=== PATIENT | female | born 2000 | race Two or more races ===

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

== ENCOUNTER 2018-06-24 13:36 | Emergency (ER) | payer OTHER ==
[2018-06-24 13:44] VITALS: BP 122/84
== END 2018-06-24 14:38 | disposition left against medical advice (07) ==
DX: Z53.21 Procedure and treatment not carried out due to patient leaving prior to being seen by health care provider (principal); R05 Cough

== ENCOUNTER 2018-06-25 03:36 | Emergency (ER) | payer OTHER ==
[2018-06-25] MEDS ORDERED: NS 1,000 ML IV ONE (04:02)
[2018-06-25] MEDS ORDERED: HALOPERIDOL LACT 5 MG/ML INJ IVP ONE (04:07)
--- NOTE | 2018-06-25 04:12 | EDPHY ---
H & P Stated Complaint: emesisx2 days Time Seen by Provider: 06/25/18 03:52 HPI/ROS: Chief Complaint: Nausea, vomiting HPI: 18-year-old female presenting with 2 days of nausea vomiting. She has had upper respiratory symptoms. No fevers or chills. No urinary urgency or frequency. She has similar episode in the past and was told that she has had some cyclic vomiting. She does use marijuana daily. Occasional alcohol, does not smoke. No fevers or chills. Last menstrual cycle was 3 weeks ago. She does have an implant on a padded [place] she states. Does not believe she is . She has not been able to keep any fluids down. ROS: 10 systems were reviewed and were negative except those elements noted in the HPI. PMH: Denies Social History: No smoking, occasional alcohol, daily marijuana Family History: non-contributory Physical Exam: Gen: Awake, Alert, No Distress HEENT: Nose: no rhinorrhea Eyes: PERRLA, EOMI Mouth: Moist mucosa Neck: Supple, no JVD Chest: nontender, lungs clear to auscultation Heart: S1, S2 normal, no murmur Abd: Soft, non-tender, no guarding Back: no CVA tenderness, no midline tenderness Ext: no edema, non-tender Skin: no rash Neuro: CN II-XII intact, Sensation grossly intact, Strength 5/5 in bilateral upper and lower extremities - Personal History LMP (Females 10-55): 15-21 Days Ago Current Tetanus/Diphtheria Vaccine: Yes Current Tetanus Diphtheria and Acellular Pertussis (TDAP): Yes - Medical/Surgical History Hx Asthma: No Hx Chronic Respiratory Disease: No Hx Diabetes: No Hx Cardiac Disease: No Hx Renal Disease: No Hx Cirrhosis: No Hx Alcoholism: No Hx HIV/AIDS: No Hx Splenectomy or Spleen Trauma: No Other PMH: denies - Social History Smoking Status: Never smoked Constitutional: Initial Vital Signs Temperature (C) 36.4 C 06/25/18 03:41 Heart Rate 71 06/25/18 03:41 Respiratory Rate 16 06/25/18 03:41 Blood Pressure 152/89 H 06/25/18 03:41 O2 Sat (%) 99 06/25/18 03:41 O2 Delivery Mode Room Air Allergies/Adverse Reactions: No Known Allergies Allergy (Verified 06/25/18 03:43) Home Medications: Medication Instructions Recorded Ondansetron Odt [Zofran Odt] 4 mg PO Q4PRN #6 tab 12/29/17 Medical Decision Making ED Course/Re-evaluation: Patient is improved after IV fluids and Haldol. She is tolerating p. O.. We have discussed at length the possibility that her symptoms could be secondary to her cannabis use. I have encouraged her to discontinue all cannabis use for at least the next 6-8 weeks. She will follow up with primary care. Return for any concerns. Abdomen is soft and benign. No evidence of acute intra abdominal infectious or surgical process. - Data Points Laboratory Results: Laboratory Results 06/25/18 03:55 06/25/18 03:55 06/25/18 06/25/18 06/25/18 03:55 03:55 03:55 WBC 13.52 10^3/uL H 10^3/uL (3.80-9.50) RBC 4.61 10^6/uL 10^6/uL (4.18-5.33) Hgb 13.9 g/dL g/dL (12.6-16.3) Hct 40.3 % % (38.0-47.0) MCV 87.4 fL fL (81.5-99.8) MCH 30.2 pg pg (27.9-34.1) MCHC 34.5 g/dL g/dL (32.4-36.7) RDW 12.4 % % (11.5-15.2) Plt Count 297 10^3/uL 10^3/uL (150-400) MPV 9.3 fL fL (8.7-11.7) Neut % (Auto) 60.1 % % (39.3-74.2) Lymph % (Auto) 31.6 % % (15.0-45.0) [place] % (Auto) 7.7 % % (4.5-13.0) Eos % (Auto) 0.2 % L % (0.6-7.6) Baso % (Auto) 0.2 % L % (0.3-1.7) Nucleat RBC Rel Count 0.0 % % (0.0-0.2) Absolute Neuts (auto) 8.12 10^3/uL H 10^3/uL (1.70-6.50) Absolute Lymphs (auto) 4.27 10^3/uL H 10^3/uL (1.00-3.00) Absolute Monos (auto) 1.04 10^3/uL H 10^3/uL (0.30-0.80) Absolute Eos (auto) 0.03 10^3/uL 10^3/uL (0.03-0.40) Absolute Basos (auto) 0.03 10^3/uL 10^3/uL (0.02-0.10) Absolute Nucleated RBC 0.00 10^3/uL 10^3/uL (0-0.01) Immature Gran % 0.2 % % (0.0-1.1) Immature Gran # 0.03 10^3/uL 10^3/uL (0.00-0.10) Sodium 139 mEq/L mEq/L (135-145) Potassium 3.4 mEq/L mEq/L (3.3-5.0) Chloride 107 mEq/L mEq/L (97-110) Carbon Dioxide 20 mEq/l L mEq/l (22-31) Anion Gap 12 mEq/L mEq/L (6-14) BUN 8 mg/dL mg/dL (7-23) Creatinine 0.5 mg/dL L mg/dL (0.6-1.0) Estimated GFR > 60 Glucose 102 mg/dL H mg/dL (70-100) Calcium 9.8 mg/dL mg/dL (8.5-10.4) Total Bilirubin 0.5 mg/dL mg/dL (0.1-1.4) AST 20 IU/L IU/L (14-46) ALT 28 IU/L IU/L (9-52) Alkaline Phosphatase 91 IU/L IU/L (38-126) Total Protein 7.4 g/dL g/dL (6.3-8.2) Albumin 4.2 g/dL g/dL (3.5-5.0) Lipase 68 IU/L IU/L (23-300) Beta HCG, Qual NEGATIVE Medications Given: Discontinued Medications Diphenhydramine HCl (Benadryl Injection) 50 mg IVP EDNOW ONE Stop: 06/25/18 04:08 Last Admin: 06/25/18 04:27 Dose: 50 mg Haloperidol Lactate (Haldol Injection) 2.5 mg IVP EDNOW ONE Stop: 06/25/18 04:08 Last Admin: 06/25/18 04:27 Dose: 2.5 mg Sodium Chloride (Ns) 1,000 mls @ 0 mls/hr IV ONCE ONE; Wide Open PRN Reason: Protocol Stop: 06/25/18 04:03 Last Admin: 06/25/18 04:27 Dose: 1,000 mls Departure - Departure Disposition: Home, Routine, Self-Care Clinical Impression: Cannabinoid hyperemesis syndrome Condition: Good Instructions: Haloperidol (By injection), Acute Nausea and Vomiting (ED) Additional Instructions: Please avoid all cannabis ingestion for the next 6-8 weeks. Follow up with primary care physician in 4-5 days for further evaluation. Return to the emergency department for increasing nausea vomiting, abdominal pain, fevers, chills, or any other concerns. Referrals: Guerita Buenrostro MD [place] [place] - As per Instructions
[2018-06-25 04:18] LABS: PLATELET COUNT 297 10^3/uL (150-400)
[2018-06-25 05:28] VITALS: BP 128/80
== END 2018-06-25 05:27 | disposition home or self-care (01) ==
DX: F12.988 Cannabis use, unspecified with other cannabis-induced disorder (principal); R11.2 Nausea with vomiting, unspecified; E86.9 Volume depletion, unspecified
CPT/HCPCS: 96374; J1200; J1630